=== PATIENT | female | born 1940 | race Caucasian/White ===

== ENCOUNTER → 2017-04-14 | Outpatient (CLI) | payer MEDICARE, BC ==
[~2017-04-14] MED LIST: ALDACTONE; ALDACTONE 25MG25 M1 PO; ASPIRIN 81M81 MG/TA2 PO; CEPHALEXIN500 M1 PO; CRANBERRY 100 M1 SGL PO; CRANBERRY CONC500 MG PO; GLUCOSAMINE & C1 CA1 PO; HCTZ; HCTZ12.5TAB PO; LEVAQUIN 750MG750 M1 PO; LOTENSIN10 MG PO; MOBIC15 MG PO; PERCOCET 325 MG1 TA2 PO; ULTRAM 50MG TAB50 MG PO
== END ==
LOC: COL.RAD 11:17
DX: M25.511 Pain in right shoulder (principal)
CPT/HCPCS: J3301; Q9967

== ENCOUNTER → 2017-05-14 | Outpatient (CLI) | payer MEDICARE, BC | LOC: COL.RAD 10:54 | DX: N28.1 Cyst of kidney, acquired (principal); N28.89 Other specified disorders of kidney and ureter ==

== ENCOUNTER 2017-06-09 19:29 | Emergency (ER) | payer MEDICARE, BC ==
[~2017-06-09] VITALS: Ht 160 cm; Wt 109.1 kg
[~2017-06-09 19:29] MED LIST changes: -CEPHALEXIN500 M1 PO; -LEVAQUIN 750MG750 M1 PO; -MOBIC15 MG PO
[2017-06-09 20:03] LABS: BASO # 0.1 (0.0-0.2); BASO % 0.4 % (0.0-2.0); EOS # 0.2 (0.0-0.7); GRAN # 17.7 (1.4-6.5); HEMATOCRIT 38.4 % (37.0-47.0); MEAN CELL VOLUME 95 fl (80.0-100.0); MEAN CORPUSCULAR HEMOGLOBIN 32 pg (27.0-31.0); MEAN CORPUSCULAR HGB CONC 34 g/dl (33.0-37.0); MEAN PLATELET VOLUME 9.3 fl (7.4-10.4); MONO # 1.2 (0.1-0.6); MONO % 5.9 % (1.7-9.3); PLATELET COUNT 236 K/mm3 (130-400); RED BLOOD COUNT 4.04 M/mm3 (4.10-5.30); REDCELL DISTRIBUTION WIDTH-CV 13.2 % (11.5-14.5)
[2017-06-09 20:06] LABS: WHITE BLOOD COUNT 20.4 K/mm3 (4.8-10.8)
[2017-06-09 20:13] LABS: ADJUSTED CALCIUM 9.2 mg/dL (8.4-10.2); ALBUMIN 4.1 gm/dL (3.5-5.0); BILIRUBIN,TOTAL 0.6 mg/dL (0.0-1.0); CALCIUM 9.3 mg/dL (8.4-10.2); CREATININE, serum 0.89 mg/dL (0.52-1.25); POTASSIUM 4.6 mmol/L (3.4-5.0); TOTAL PROTEIN 6.9 gm/dL (6.4-8.2)
[2017-06-09 20:50] LABS: PH 5 (5-8); SQUAMOUS EPITHELIAL 0-2 /hpf; URINE APPEARANCE Clear; URINE BACTERIA None Seen /hpf; URINE BILIRUBIN Negative (NEGATIVE); URINE BLOOD Negative (NEGATIVE); URINE COLOR Yellow; URINE GLUCOSE Negative (NEGATIVE); URINE KETONE Negative (NEGATIVE); URINE RBC 0-2 /hpf; URINE UROBILINOGEN Negative (NEGATIVE); URINE WBC 0-2 /hpf
[2017-06-09 20:56] VITALS: TEMP 99.1
[2017-06-09 21:06] LABS: INFLUENZA B NEGATIVE
[2017-06-09 22:26] VITALS: BP 130/60; PULSE 89
[2017-06-09] MEDS ORDERED: LEVAQUIN 750MG750 M1 PO (22:37)
== END 2017-06-09 22:56 | disposition home or self-care (01) ==
LOC: COL.ER 19:29
PROVIDERS: Emergency Medicine
DX: R50.9 Fever, unspecified (principal); J20.9 Acute bronchitis, unspecified; Z79.82 Long term (current) use of aspirin
CPT/HCPCS: J1885; J2405; J7030; Q9967

== ENCOUNTER 2017-06-13 14:21 | Emergency (ER) | payer MEDICARE, BC ==
[~2017-06-13] VITALS: Ht 160 cm; Wt 110.0 kg
[~2017-06-13 14:21] MED LIST changes: +LEVAQUIN 750MG750 M1 PO
[2017-06-13 14:24] VITALS: TEMP 97.6
[2017-06-13] MEDS ORDERED: CEPHALEXIN500 M1 PO (14:28)
[2017-06-13] MEDS ORDERED: MOBIC15 MG PO (14:29)
[2017-06-13 15:54] LABS: BASO # 0.1 (0.0-0.2); BASO % 0.5 % (0.0-2.0); EOS # 0.3 (0.0-0.7); EOS % 3.5 % (0-4.0); GRAN # 6.7 (1.4-6.5); GRAN % 67.8 % (42.2-75.2); HEMATOCRIT 38.1 % (37.0-47.0); HEMOGLOBIN 12.5 g/dl (12.5-16.0); LYMPH # 1.9 (1.2-3.4); LYMPH % 18.8 % (20.0-51.0); MEAN CELL VOLUME 97 fl (80.0-100.0); MEAN CORPUSCULAR HEMOGLOBIN 32 pg (27.0-31.0); MEAN CORPUSCULAR HGB CONC 33 g/dl (33.0-37.0); MEAN PLATELET VOLUME 9.3 fl (7.4-10.4); MONO # 0.9 (0.1-0.6); MONO % 8.6 % (1.7-9.3); PLATELET COUNT 217 K/mm3 (130-400); RED BLOOD COUNT 3.94 M/mm3 (4.10-5.30); REDCELL DISTRIBUTION WIDTH-CV 13.2 % (11.5-14.5); WHITE BLOOD COUNT 9.9 K/mm3 (4.8-10.8)
[2017-06-13 16:01] LABS: ADJUSTED CALCIUM 9.3 mg/dL (8.4-10.2); ALBUMIN 3.7 gm/dL (3.5-5.0); BILIRUBIN,TOTAL 0.6 mg/dL (0.0-1.0); CALCIUM 9.1 mg/dL (8.4-10.2); CREATININE, serum 0.88 mg/dL (0.52-1.25); POTASSIUM 3.8 mmol/L (3.4-5.0); TOTAL PROTEIN 6.8 gm/dL (6.4-8.2)
[2017-06-13 17:27] VITALS: BP 141/50; PULSE 66
== END 2017-06-13 17:39 | disposition home or self-care (01) ==
LOC: COL.ER 14:21
PROVIDERS: Emergency Medicine
DX: L03.90 Cellulitis, unspecified (principal); I10 Essential (primary) hypertension; Z79.82 Long term (current) use of aspirin
CPT/HCPCS: J3370; J7050

== ENCOUNTER → 2017-09-02 | Outpatient (CLI) | payer MEDICARE, BC ==
[~2017-09-02] MED LIST changes: +CEPHALEXIN500 M1 PO; +MOBIC15 MG PO
== END ==
LOC: COL.RAD 09:38
DX: N20.0 Calculus of kidney (principal); N28.1 Cyst of kidney, acquired; Z90.49 Acquired absence of other specified parts of digestive tract; Z98.890 Other specified postprocedural states
CPT/HCPCS: Q9967

== ENCOUNTER 2018-03-18 06:47 | Day surgery (SDC) | payer MEDICARE, BC ==
[2018-03-18] VITALS (10 sets, daily range): BP systolic 107–169; BP diastolic 52–72; PULSE 54–65; TEMP 97.8
[~2018-03-18] VITALS: Ht 160.1 cm; Wt 105.9 kg
[~2018-03-18 06:47] MED LIST changes: +LOTENSIN 1010 MG/TAB PO; -LOTENSIN10 MG PO
[2018-03-18] MEDS ORDERED: PRIL40 PO (07:19)
[2018-03-18] MEDS ORDERED: MULTI VITAMINS1 TAB PO (07:20)
[2018-03-18] MEDS ORDERED: [UNRECOGNIZED DRUG - OTHER] OP (07:20)
[2018-03-18] MEDS ORDERED: TYLENOL 8 HR PO (07:21)
[2018-03-18 07:31] LABS: HEMATOCRIT 39.8 % (37.0-47.0); HEMOGLOBIN 13.3 g/dl (12.5-16.0); MEAN CELL VOLUME 95 fl (80.0-100.0); MEAN CORPUSCULAR HEMOGLOBIN 32 pg (27.0-31.0); MEAN CORPUSCULAR HGB CONC 33 g/dl (33.0-37.0); MEAN PLATELET VOLUME 9.5 fl (7.4-10.4); PLATELET COUNT 219 K/mm3 (130-400); RED BLOOD COUNT 4.19 M/mm3 (4.10-5.30); REDCELL DISTRIBUTION WIDTH-CV 13.1 % (11.5-14.5)
[2018-03-18 07:40] LABS: INR 1.1 (0.8-3.0); PROTHROMBIN TIME 12.2 SECONDS (9.7-12.8)
[2018-03-18 07:44] LABS: CALCIUM 9.7 mg/dL (8.4-10.2); CREATININE, serum 1.04 mg/dL (0.52-1.25); POTASSIUM 4.1 mmol/L (3.4-5.0)
[2018-03-18] MEDS ORDERED: NORVASC 10MG10 MG PO (10:23)
== END 2018-03-18 13:15 | disposition home or self-care (01) ==
LOC: COL.CAR 06:47
PROVIDERS: Internal Medicine Cardiovascular Disease
DX: I10 Essential (primary) hypertension (principal); E66.01 Morbid (severe) obesity due to excess calories; I35.8 Other nonrheumatic aortic valve disorders; Z66 Do not resuscitate; E87.5 Hyperkalemia; K44.9 Diaphragmatic hernia without obstruction or gangrene; Z79.899 Other long term (current) drug therapy; Z79.82 Long term (current) use of aspirin; N30.20 Other chronic cystitis without hematuria; F41.9 Anxiety disorder, unspecified
CPT/HCPCS: C1769; J1644; J2250; J3010; Q9967

== ENCOUNTER → 2018-11-01 | Outpatient (CLI) | payer MEDICARE, BC ==
[~2018-11-01] MED LIST changes: +MULTI VITAMINS1 TAB PO; +NORVASC 10MG10 MG PO; +PRIL40 PO; +TYLENOL 8 HR PO; +[UNRECOGNIZED DRUG - OTHER] OP
== END ==
LOC: MC.RAD 10:20
DX: Z12.31 Encounter for screening mammogram for malignant neoplasm of breast (principal)

== ENCOUNTER 2019-02-02 10:12 | Emergency (ER) | payer MEDICARE, BC ==
[~2019-02-02] VITALS: Ht 160 cm; Wt 100.0 kg
[2019-02-02 10:19] VITALS: TEMP 97.5
[2019-02-02] MEDS ORDERED: LOTENSIN20 MG (10:41)
[2019-02-02 11:44] LABS: COLLECTION METHOD CLEAN CATCH
[2019-02-02] MEDS ORDERED: PERCOCET 325 MG1 TA2 PO (11:49)
[2019-02-02] MEDS ORDERED: MEDROL 4MG DOSPA4 MG PO (11:53)
[2019-02-02 11:56] LABS: MUCOUS Present /lpf; PH 7 (5-8); URINE APPEARANCE Clear; URINE BACTERIA Rare /hpf; URINE BILIRUBIN Negative (NEGATIVE); URINE BLOOD Negative (NEGATIVE); URINE COLOR Yellow; URINE GLUCOSE Negative (NEGATIVE); URINE KETONE Negative (NEGATIVE); URINE LEUKOCYTE ESTERASE 2+ (NEGATIVE); URINE NITRATE Negative (NEGATIVE); URINE PROTEIN(semi-quant) Negative (NEGATIVE); URINE RBC 0-2 /hpf; URINE UROBILINOGEN Negative (NEGATIVE)
[2019-02-02] MEDS ORDERED: MACROBID 1100 MG/CAP PO (12:07)
[2019-02-02 12:19] VITALS: BP 123/49; PULSE 55
== END 2019-02-02 12:19 | disposition home or self-care (01) ==
LOC: COL.ER 10:12
PROVIDERS: Family Medicine
DX: M54.17 Radiculopathy, lumbosacral region (principal); N30.00 Acute cystitis without hematuria; M54.41 Lumbago with sciatica, right side; I10 Essential (primary) hypertension; K21.9 Gastro-esophageal reflux disease without esophagitis; Z79.82 Long term (current) use of aspirin
CPT/HCPCS: J2270

== ENCOUNTER 2019-06-06 11:23 | Emergency (ER) | payer MEDICARE, BC ==
[~2019-06-06] VITALS: Ht 160 cm; Wt 99.5 kg
[~2019-06-06 11:23] MED LIST changes: +LOTENSIN20 MG; +MACROBID 1100 MG/CAP PO; +MEDROL 4MG DOSPA4 MG PO
[2019-06-06 11:39] VITALS: TEMP 98.3
[2019-06-06] MEDS ORDERED: NORCO 325 MG-51 TAB PO (14:30)
[2019-06-06 15:16] VITALS: BP 115/38; PULSE 59
== END 2019-06-06 15:17 | disposition home or self-care (01) ==
LOC: COL.ER 11:23
DX: S43.005A Unspecified dislocation of left shoulder joint, initial encounter (principal); I10 Essential (primary) hypertension; Z88.0 Allergy status to penicillin; Z88.2 Allergy status to sulfonamides; W01.0XXA Fall on same level from slipping, tripping and stumbling without subsequent striking against object, initial encounter; Y92.009 Unspecified place in unspecified non-institutional (private) residence as the place of occurrence of the external cause
CPT/HCPCS: J2270; J2704; J3010

== ENCOUNTER 2019-07-01 16:50 | Observation (INO) | payer MEDICARE, BC ==
[~2019-07-01] VITALS: Ht 160 cm; Wt 102.3 kg
[~2019-07-01 16:50] MED LIST changes: +NORCO 325 MG-51 TAB PO
[2019-07-01 19:08] LABS: COLLECTION METHOD CLEAN CATCH
[2019-07-01 19:14] LABS: MUCOUS Present /lpf; PH 5 (5-8); URINE APPEARANCE Clear; URINE BACTERIA None Seen /hpf; URINE BILIRUBIN Negative (NEGATIVE); URINE BLOOD Negative (NEGATIVE); URINE COLOR Yellow; URINE GLUCOSE Negative (NEGATIVE); URINE KETONE Negative (NEGATIVE); URINE LEUKOCYTE ESTERASE 1+ (NEGATIVE); URINE NITRATE Negative (NEGATIVE); URINE PROTEIN(semi-quant) Negative (NEGATIVE); URINE RBC 0-2 /hpf; URINE UROBILINOGEN Negative (NEGATIVE)
[2019-07-01] MEDS ORDERED: LOTENSIN40 MG PO (20:43)
[2019-07-01 21:08] LABS: BASO % 0.4 % (0.0-2.0); EOS # 0.2 (0.0-0.7); EOS % 1.8 % (0-4.0); GRAN # 6.5 (1.4-6.5); HEMATOCRIT 41.4 % (37.0-47.0); HEMOGLOBIN 13.4 g/dl (12.5-16.0); LYMPH # 2.2 (1.2-3.4); LYMPH % 22.5 % (20.0-51.0); MEAN CELL VOLUME 100 fl (80.0-100.0); MEAN CORPUSCULAR HEMOGLOBIN 32 pg (27.0-31.0); MEAN CORPUSCULAR HGB CONC 32 g/dl (33.0-37.0); MONO # 0.7 (0.1-0.6); MONO % 7.6 % (1.7-9.3); PLATELET COUNT 245 K/mm3 (130-400); RED BLOOD COUNT 4.14 M/mm3 (4.10-5.30); REDCELL DISTRIBUTION WIDTH-CV 12.5 % (11.5-14.5)
[2019-07-01 21:13] LABS: ALANINE AMINOTRANSFERASE 15 U/L (9-52); ALBUMIN 4.8 gm/dL (3.5-5.0); ALKALINE PHOSPHATASE 86 U/L (50-136); ANION GAP 12 mmol/L (7-16); AST,SGOT 26 U/L (15-37); BILIRUBIN,TOTAL 0.3 mg/dL (0.0-1.0); BLOOD UREA NITROGEN 44 mg/dL (7-17); CALCIUM 9.9 mg/dL (8.4-10.2); CARBON DIOXIDE 26 mmol/L (22-30); CHLORIDE 101 mmol/L (98-107); CREATININE, serum 1.26 (0.52-1.25); GLUCOSE 111 mg/dL (74-106); POTASSIUM 5.4 mmol/L (3.4-5.0); SODIUM 139 mmol/L (137-145); TOTAL PROTEIN 7.9 gm/dL (6.4-8.2)
[2019-07-01 21:17] LABS: C-REACTIVE PROTEIN < 0.5 mg/dL (0.0-0.9)
[2019-07-01] MEDS ORDERED: ADVIL200 MG PO (21:28)
[2019-07-01] MEDS ORDERED: FLAREX 5 ML5 M1 OP (21:29)
[2019-07-01 21:58] LABS: ERYTHROCYTE SEDIMENTATION RATE 6 mm/hr (0-30)
[2019-07-01 22:41] VITALS: BP 139/57; PULSE 60; TEMP 97.6
[2019-07-01 23:41] VITALS: BP 120/40; PULSE 65; TEMP 97.4
[2019-07-02] VITALS (7 sets, daily range): BP systolic 120–181; BP diastolic 35–74; PULSE 57–75; TEMP 97.4–98.8
[2019-07-02 00:29] LABS: CALCIUM 8.7 mg/dL (8.4-10.2); CREATININE, serum 1.09 (0.52-1.25); POTASSIUM 4.6 mmol/L (3.4-5.0)
--- NOTE | 2019-07-02 06:01 | NUR ---
Pt has had a fairly comfortable night after repositioned to right side and supported with pillows. Medicated x1 with oral pain med. IV fluids continue to infuse at 150mL/hr in R FA. Call light within reach. Bed alarm on.
[2019-07-02 07:00] LABS: BASO % 0.5 % (0.0-2.0); EOS # 0.2 (0.0-0.7); EOS % 2.4 % (0-4.0); GRAN # 5.5 (1.4-6.5); GRAN % 64.3 % (42.2-75.2); LYMPH # 1.9 (1.2-3.4); LYMPH % 22.4 % (20.0-51.0); MEAN CELL VOLUME 99 fl (80.0-100.0); MEAN CORPUSCULAR HGB CONC 33 g/dl (33.0-37.0); MEAN PLATELET VOLUME 9.4 fl (7.4-10.4); MONO # 0.9 (0.1-0.6); MONO % 9.9 % (1.7-9.3); PLATELET COUNT 175 K/mm3 (130-400); REDCELL DISTRIBUTION WIDTH-CV 12.3 % (11.5-14.5)
[2019-07-02 07:10] LABS: HEMATOCRIT 34.7 % (37.0-47.0); HEMOGLOBIN 11.4 g/dl (12.5-16.0); MEAN CORPUSCULAR HEMOGLOBIN 33 pg (27.0-31.0)
[2019-07-02 07:12] LABS: CALCIUM 8.6 mg/dL (8.4-10.2); CREATININE, serum 0.93 (0.52-1.25); POTASSIUM 4.9 mmol/L (3.4-5.0)
--- NOTE | 2019-07-02 07:56 | NUR ---
Pt alert and oriented. Pt assisted back to bed and positioned on her right side per request with pillows. Pt IV patent no redness or infiltration noted. Pt back pain 3/10 at rest and increases with movement. Pt denies SOB or dizziness. Neuro WNL. Pt has call light in reach and wants to rest for awhile. Pt already ate breakfast per pt.
--- NOTE | 2019-07-02 14:23 | NUR ---
Plan is to screen into a SNF or IPR. If unavailable home health care. DANIEL met with patient, patients DTR Abbey and Son in-law Hardik in room. Patient gave permission to discuss information infront of family. Patient reports that [place] [facility]. Patient reports that she has increasing pain in which she can barely move and often can not get around the home to take care of herself. Patient reports that her PCP is Dr. Greenwood. Patient reports that use of a walker and cane, no other DME. Patient reports that use of [facility] for RX. Patient denies having care concerns. Patient reports that the DPOA is Vance Astorga . Daughter is present and wants more information on SNF. Follow-up miky is scheduled for next thursday at 7:45 am. Patient and family indicate not feeling safe to go home. Action: DANIEL spoke with about patient concerns. PT is [facility] and will does not qt for admin. Educated patient and family about screen process. Indicated screen for IPR and Home health care. DANIEL gave family and patient medicare.gove resource sheet for HHS and SNF. Educated on out of pocket cost without qualifying. Educated for referral. Awaiting additonal information from . Continue to follow care.
--- NOTE | 2019-07-02 17:35 | NUR ---
Pt resting in chair. Pt ambulates with SBA with walker to bathroom. Pt reports pain with certain movements but does not last long. Pt IV patent no redness and no infiltration noted. Pt denies need for pain medication at this time. Pt has supper ordered.
--- NOTE | 2019-07-02 20:20 | NUR ---
Patient assessed at this time. Alert and oriented x 4, and able to make needs known. Reported pain to have decreased to a 4 after receiving PRN medication. Peripheral IV to right forearm. NS running at 75 ml/hr. Denies having SOB and dyspnea. LS CTA. Respirations even and unlabored. HRR. Capillary refill less than 3 seconds. Non-tenting skin turgor. BSAx4. Abdomen soft and non-tender. No edema. Has been getting up with SBA with walker. Gait is steady. Resting in bed with call light within reach. Visiting with family members at this time. Voices no questions, needs, or concerns at this time.
[2019-07-03 03:39] VITALS: BP 138/40; PULSE 55; TEMP 98.4
--- NOTE | 2019-07-03 05:41 | NUR ---
Patient has not had any further complaints of pain or discomfort. Has been calling for assistance and getting around with walker with stand by assist. Voices no questions, needs, or concerns. Resting in bed with call light within reach.
--- NOTE | 2019-07-03 07:31 | NUR ---
Pt alert and oriented this am. Pt sitting at side of bed at shift change and requested to get up to wash her face and brush her teeth. Pt assisted with walker and as pt ambulated her back pain increased. Pt assisted back to bed after brushing her teeth and washing her face. Pt reports pain now 8/10. Pt given PRN [place] as ordered. Pt has call light in reach. Pt IV patent no redness or infiltration noted.
[2019-07-03 08:10] VITALS: BP 149/58; PULSE 59; TEMP 98.4
--- NOTE | 2019-07-03 11:15 | NUR ---
Pt sitting up in chair after working with PT. Pt states pain decreased after working with PT and oral medications and ice treatment. Pt has call light in reach and ordering lunch now.
[2019-07-03 11:35] VITALS: BP 160/69; PULSE 59; TEMP 98.1
[2019-07-03] MEDS ORDERED: LOVENOX 4040 MG/0.4 SQ (14:05)
[2019-07-03] MEDS ORDERED: PREDNISONE20 MG PO (14:06)
[2019-07-03] MEDS ORDERED: COLACE 100100 MG/CAP PO (14:06)
[2019-07-03] MEDS ORDERED: TYLENOL 500MG500 MG PO (14:06)
[2019-07-03] MEDS ORDERED: MOTRIN 400400 MG/TAB PO (14:10)
[2019-07-03 16:12] VITALS: BP 160/69; PULSE 59; TEMP 98.1
[2019-07-03 16:23] VITALS: BP 153/60; PULSE 73; TEMP 98
--- NOTE | 2019-07-03 16:53 | NUR ---
Pt report given to [facility] nurse Joann for pt transfer.
--- NOTE | 2019-07-03 18:05 | NUR ---
Pt IV discontinued from RF and tip intact and no redness or infiltration noted. Pt given education on transfer to [facility] with family present and discharge instructions and plan. Pt has all belongings and escorted via wheelchair to IPR by aide without incident.
[2019-07-04] MEDS ORDERED: MICROZIDE12.5 MG PO (04:53)
[2019-07-04] MEDS ORDERED: TURMERIC500 MG PO (09:04)
== END 2019-07-03 17:25 ==
LOC: COL.ER 16:50 → MEDICAL 19:56
PROVIDERS: Emergency Medicine; Nurse Practitioner Family; ADMIT Internal Medicine
DX: M54.40 Lumbago with sciatica, unspecified side (principal); N17.9 Acute kidney failure, unspecified; E87.5 Hyperkalemia; I10 Essential (primary) hypertension; R82.81 Pyuria; Z86.718 Personal history of other venous thrombosis and embolism; Z79.01 Long term (current) use of anticoagulants; E66.9 Obesity, unspecified; Z68.39 Body mass index [BMI] 39.0-39.9, adult; M19.90 Unspecified osteoarthritis, unspecified site; M47.896 Other spondylosis, lumbar region; Z94.7 Corneal transplant status; Z96.643 Presence of artificial hip joint, bilateral; Z90.49 Acquired absence of other specified parts of digestive tract; Z79.899 Other long term (current) drug therapy; Z79.82 Long term (current) use of aspirin; Z82.49 Family history of ischemic heart disease and other diseases of the circulatory system; Z82.69 Family history of other diseases of the musculoskeletal system and connective tissue; Z83.3 Family history of diabetes mellitus; Z88.0 Allergy status to penicillin; Z88.2 Allergy status to sulfonamides; Z88.8 Allergy status to other drugs, medicaments and biological substances
CPT/HCPCS: G0378; J1650; J1885; J3010; J7030; J7512

== ENCOUNTER 2019-07-03 13:57 | Inpatient (IN) | payer MEDICARE, BC, OTHER ==
[~2019-07-03] VITALS: Ht 160 cm; Wt 100.4 kg
[~2019-07-03 13:57] MED LIST changes: +ADVIL200 MG PO; +FLAREX 5 ML5 M1 OP; +LOTENSIN40 MG PO
[2019-07-03] MEDS ORDERED: LOVENOX 4040 MG/0.4 SQ (14:05)
[2019-07-03] MEDS ORDERED: PREDNISONE20 MG PO (14:06)
[2019-07-03] MEDS ORDERED: COLACE 100100 MG/CAP PO (14:06)
[2019-07-03] MEDS ORDERED: TYLENOL 500MG500 MG PO (14:06)
[2019-07-03] MEDS ORDERED: MOTRIN 400400 MG/TAB PO (14:10)
--- NOTE | 2019-07-03 15:06 | NUR ---
Referred and accepted to [facility] per inpatient rn cardiac rehab.
[2019-07-03 17:41] VITALS: BP 143/73; PULSE 75; TEMP 97.9
--- NOTE | 2019-07-03 19:54 | NUR ---
Patient arrived to [facility] at 1700 this evening. Family helped her get settled in her room. Initial was completed. Patient was given instructions on rehab activities and voiced understanding. Family contact numbers were left for daughter ([phone]) and son-in-law ([phone]) per patient request. Patient signed admission papers and is currently resting in bed at this time. Reported off to night nurse.
[2019-07-04 04:49] VITALS: BP 172/69; PULSE 75; TEMP 98.1
[2019-07-04] MEDS ORDERED: MICROZIDE12.5 MG PO (04:53)
[2019-07-04] MEDS ORDERED: TURMERIC500 MG PO (09:04)
--- NOTE | 2019-07-04 12:17 | NUR ---
SW met with the patient to complete assessment on Rehab. Pt is alert & oriented. She is able to verbally communicate her needs & wants to others. Pt lives w/ alone but has good family support. She lives in a 2 story home w/ 2 steps to enter w/ bilateral handrails. Pt reports not using the 2nd floor or the cellar. The bathroom has a step-in shower w/ curtain, built in shower seat, grab bars, & hand held shower head. The toilet is ADA height. Pt reports being able to walk w/ s/cane, which she used mostly outside & had a tendancy to furniture surf inside. Pt was doing her own ADL's, cooking, light housekeeping, laundry, some shopping, drove some, medication management, & finance management. Pt reports having r/walker & s/cane. Family does help w/ the shopping, heavy housekeeping, & most driving. Pt does not receive any services. Pt's PCP is Dr. Galicia and her receives her medications at [facility], & reports no difficulties obtaining her meds. The pt does have advanced directives w/ her son, Rizwan, designated as DPOA. Copy was requested for our records. Pt's plan is to return to her home w/ support from her family. Pt is interested in a 4/wheel walker she used this morning in therapy. Will continue to follow for d/c planning.
--- NOTE | 2019-07-04 14:12 | NUR ---
Explained to the pt the team is wanting to do a pt/family conference on 07/06/19 @ 2:00 pm if that would work for her family. Pt actually contacted 2 of her children, who stated that would work for them.
[2019-07-04 18:16] VITALS: BP 145/60; PULSE 78; TEMP 97.6
--- NOTE | 2019-07-04 20:02 | NUR ---
Report from ZOILA Peters. Pt A&O, pleasantly cooperative, amb with rollator, gait belt, CGA. Pt in own sandals with built-up wedge on rt side. Reports chronic numbness to left hand w/ hx of carpal tunnel. Ice pack for left shoulder/right low back pain. BIMS completed, passed. Pt takes pills whole with thin liquids. Questions answered about GILDARDO and BP meds. Pt's family brought pt's own meds and DPOA paperwork to chart. Pt uses pads for stress incont. Pain controlled with tylenol. Report to ZOILA Diaz.
--- NOTE | 2019-07-04 20:30 | NUR ---
HS meds all reviewed and given. Declines bowel meds because of recent stool. Rests in bed and denies needs or pain.
--- NOTE | 2019-07-05 02:15 | NUR ---
Patient awake. Reports inability to sleep well tonight "worried about my kidney function". States is voiding a good amount. Hat placed to monitor urine output. Denies burning or flank pain with urination. Will monitor. Standby assist to the bathroom with walker and back to bed. Sits self up and rests self back in bed.
[2019-07-05 04:07] VITALS: BP 134/41; PULSE 52; TEMP 97.8
--- NOTE | 2019-07-05 04:08 | NUR ---
PATIENT BACK TO BED. STATES "NOT REALLY" TO GETTING SOME SLEEP UP IN RECLINER.
--- NOTE | 2019-07-05 05:45 | NUR ---
Patient returned from the bathroom and rests back in bed. Nurse assists with covers. Reports her arm gets sore reaching for them. Offered pain med and patient declined at this time.
--- NOTE | 2019-07-05 08:02 | NUR ---
Patient resting in bed at this time, call light in reach fully dressed and waiting for her first therapy session. Shoes are on and working on a puzzle. Patient did not sleep well last night. Discussed possible melatonin for helping sleep at bed time. Will discuss with Dr. brothers.
--- NOTE | 2019-07-05 15:05 | NUR ---
Visited w/ pt, who is having a off day. She stated she did not sleep well last night due to getting up frequently to urinate. She seemed a little down about her decline. We talked about having good days & bad days, which she agreed with. Pt seemed to be in a better mood after our conversation.
[2019-07-05 15:43] VITALS: BP 88/69; PULSE 85; TEMP 97.9
[2019-07-05 16:02] VITALS: BP 136/72
--- NOTE | 2019-07-05 17:00 | NUR ---
Patient is independent in her room with a walker. She is currently sitting on the side of her bed eating her supper. Denies questions at this time.
--- NOTE | 2019-07-05 20:45 | NUR ---
med reviewed and given. Patient denies pain at this time. Reports she's getting around fine independently. Gatorade given.
--- NOTE | 2019-07-05 22:45 | NUR ---
Rests in bed mostly on abdomin. Respirations with ease.
[2019-07-06 05:23] VITALS: BP 151/72; PULSE 56; TEMP 98.3
--- NOTE | 2019-07-06 05:43 | NUR ---
Patient states "slept really good" and not up as often to the bathroom. Reports left shoulder soreness but declines pain med. Ice pack applied.
[2019-07-06 06:26] LABS: BASO % 0.3 % (0.0-2.0); EOS # 0.1 (0.0-0.7); GRAN # 7.2 (1.4-6.5); HEMATOCRIT 37.5 % (37.0-47.0); HEMOGLOBIN 12.1 g/dl (12.5-16.0); LYMPH # 3.2 (1.2-3.4); LYMPH % 27.6 % (20.0-51.0); MEAN CELL VOLUME 99 fl (80.0-100.0); MEAN CORPUSCULAR HEMOGLOBIN 32 pg (27.0-31.0); MEAN CORPUSCULAR HGB CONC 32 g/dl (33.0-37.0); MEAN PLATELET VOLUME 9.4 fl (7.4-10.4); MONO % 8.3 % (1.7-9.3); PLATELET COUNT 217 K/mm3 (130-400); REDCELL DISTRIBUTION WIDTH-CV 12.1 % (11.5-14.5)
[2019-07-06 06:39] LABS: ALBUMIN 4.1 gm/dL (3.5-5.0); BILIRUBIN,TOTAL 0.5 mg/dL (0.0-1.0); CALCIUM 9.4 mg/dL (8.4-10.2); CREATININE, serum 0.81 (0.52-1.25); MAGNESIUM 1.8 mg/dL (1.6-2.3); TOTAL PROTEIN 6.7 gm/dL (6.4-8.2)
--- NOTE | 2019-07-06 07:54 | NUR ---
Patient resting in bed at this time, independent in room with walker. Ate 100% of her meal.
--- NOTE | 2019-07-06 08:35 | NUR ---
Family brought in copy of DPOA paperwork & it was placed in pt's chart.
--- NOTE | 2019-07-06 14:15 | NUR ---
A Family Conference was conducted with pt, pt's daughter, son, & son-in-law. Also present was PT, OT, & Real Estate Valuer/SW. Real Estate Valuer/SW started by explaining the purpose of the meeting. The therapists explained how pt has been functioning & making good progress. Informed them of d/c for 07/08/19, w/ recommendations for outpatient PT. They seemed fine with this. They asked questions which team answered. Pt & family are pleased with progress & care pt is receiving.
--- NOTE | 2019-07-06 14:20 | NUR ---
Went back to pt's room & talked w/ pt & family about the 4/wheeled walker. Explained that Medicare will pay for a 4/w/walker up to a r/walker rate & then the remaining cost would be pt's responiblity. They were fine w/ this. Provided them w/ a list of place to obtain & they decided on [facility]. They also want to stay w/ [facility] for outpatient therapy.
[2019-07-06 17:59] VITALS: BP 120/76; PULSE 83; TEMP 97.4
--- NOTE | 2019-07-06 21:05 | NUR ---
Patient attended all therapies today. Reporting pain to her back and was given prn Tylenol, but this was not very effective so was given Ibuprofen. Patient tolerated well, but was still having 8/10 pain when working with PT and was given prn [place] in the afternoon and this seem to be very effective for the patient. She was hoping to start out with the [place] tomorrow morning to prepare her for the morning therapies. This was communicated to the night nurse. Patient was independent in her room today. Patient reported sleeping very well last night. Ice pack was used to help with back pain this evening.
--- NOTE | 2019-07-06 21:07 | NUR ---
Reported off to night nurse.
--- NOTE | 2019-07-06 22:30 | NUR ---
PT RESTING BUT WAKES EASILY. MOD IN ROOM/BARDALES W WALKER. PT RELATES TOLERATING IT WELL. DENIES NEED FOR PAIN MEDICATION. HAS LT SHOUDER DISCOMFORT AT TIMES AND USES ICE PACKS PRN FOR THIS. PT WEARS PADS [id number] STRESS INCONT. NO OTHER NEEDS AT THIS TIME. CALL LIGHT IN REACH.
--- NOTE | 2019-07-07 05:27 | NUR ---
PATIENT HAS SLEPT WELL THIS NIGHT.
[2019-07-07 05:44] VITALS: BP 141/52; PULSE 54; TEMP 97.7
--- NOTE | 2019-07-07 09:45 | NUR ---
Was informed by nursing that pt very emotional this morning about going home. Went & visited w/ pt. She started crying & stated she is concerned about what she is going to do after she gets home & she can do it. She wants to know what her options are. We talked about assisted living facility or half-way facility. Pt kept talking about how she does not want to be a burden to her family. Let pt vent & crying. Asked her if SW could talk w/ her daughter, Abbey, which she said was fine.
--- NOTE | 2019-07-07 10:18 | NUR ---
Contacted [facility] & spoke w/ Christina. Equipment order request made for rollator. Faxed referral information.
--- NOTE | 2019-07-07 11:08 | NUR ---
Report from ZOILA Peters. Pt radhames mod I in room with walker. C/o pain and anxious about going home alone, tearful. Enc pt to express concerns, she states she does not have anyone to stay with for any time after she returns home, informed Dir Bryanna/DANIEL. Pt states she had a BM yesterday, held colace this am. Takes pills whole with thin liquds. Tylenol for back pain given.
--- NOTE | 2019-07-07 12:59 | NUR ---
Pt tearful about discharge planning and the future, does not want to be a burden to her family, states that her daughter will stay with her through Thursday, offered enc and support. Luz mod I in rm
--- NOTE | 2019-07-07 13:38 | NUR ---
Followed up w/ pt from conversation this morning. She told SW that she is doing much better & that she did speak w/ her daughter. She plans on going home & just taking one day at a time. Reviewed Medicare Rights form w/ pt. She stated she understood & signed form.
[2019-07-07 15:40] VITALS: BP 129/65; PULSE 79; TEMP 98
--- NOTE | 2019-07-07 17:42 | NUR ---
Pt sitting bedside, walker in reach, new one delivered to room. Denies needs at this time.
--- NOTE | 2019-07-07 19:38 | NUR ---
Report to Lorraine RN, pt mod I in with door open.
--- NOTE | 2019-07-07 21:00 | NUR ---
PT RESTING IN BED ON RT SIDE. PT DENIES PAIN LONG SHE STAYS STILL. REFUSED PAIN MEDS OR ICE PACKS. LT SHOULDER STILL ACHEY. PT MOD I IN ROOM AND BARDALES WITH WALKER. PT RELATES SHE FEELS SHE IS STEADY. AGREED TO CALL STAFF IF NEEDING ANY STAFF. CALL LIGHT IN REACH.
[2019-07-08 03:57] VITALS: BP 104/68; PULSE 56; TEMP 98.1
[2019-07-08] MEDS ORDERED: PREDNISONE10 MG PO (07:26)
[2019-07-08] MEDS ORDERED: NORCO 325 MG-51 TAB PO (07:27)
--- NOTE | 2019-07-08 09:51 | NUR ---
Contacted [facility]. Arranged for PT appointment on 07/11/19 @ 10:40 am. Faxed referral information to [phone].
--- NOTE | 2019-07-08 10:15 | NUR ---
Visited w/ pt about Neurosurgeon follow up. Told her that Dr Gutiérrez' recommendation was for 1 of 3 physicans at the [facility] in [place] or Dr. Kapadia at [facility]. She also inquired about [place] & told her it was not mentioned by Dr. Gutiérrez but it can always be an option. She stated she wanted to talk to her children before proceeding. Told her that was fine because once they decide then Dr. Gutiérrez can make the referral.
--- NOTE | 2019-07-08 14:03 | NUR ---
Printed health summary, discharge summary and home med list and reviewed with pt and daughter. Copy of home med list to chart with written changes. Prescription for norco provided. Stressed importance of follow up appointments and labs. Noted that prednisone prescription was sent to pt's pharmacy. Belongings gathered by staff and pt/family. Pt transported via wheelchair by JONATHAN Bateman for ride home. Pt and daughter denied any questions. Provided tylenol prior to discharge. Returned pt's meds: flarex eye drops, cranberry caps, and benazepril tabs. Pt taking dentures, glasses, new walker, silver flip phone and clothes.
--- NOTE | 2019-07-08 14:03 | NUR ---
Reviewed discharge instructions
== END 2019-07-08 14:03 | disposition home or self-care (01) | DRG 948 ==
PROVIDERS: ADMIT Internal Medicine
DX: R53.81 Other malaise (principal); N17.9 Acute kidney failure, unspecified; M48.061 Spinal stenosis, lumbar region without neurogenic claudication; I10 Essential (primary) hypertension; E87.5 Hyperkalemia; E66.9 Obesity, unspecified; M19.90 Unspecified osteoarthritis, unspecified site; Z79.82 Long term (current) use of aspirin; Z79.891 Long term (current) use of opiate analgesic; Z79.52 Long term (current) use of systemic steroids; Z90.710 Acquired absence of both cervix and uterus; Z86.718 Personal history of other venous thrombosis and embolism; Z88.0 Allergy status to penicillin; Z88.2 Allergy status to sulfonamides
CPT/HCPCS: 99222-AI; 99232-AI; 99239; J1650; J7512

== ENCOUNTER 2019-07-29 11:32 | Outpatient (CLI) | payer MEDICARE, BC ==
[~2019-07-29] VITALS: Ht 160 cm; Wt 101.1 kg
[~2019-07-29 11:32] MED LIST changes: +COLACE 100100 MG/CAP PO; +LOVENOX 4040 MG/0.4 SQ; +MICROZIDE12.5 MG PO; +MOTRIN 400400 MG/TAB PO; +PREDNISONE10 MG PO; +PREDNISONE20 MG PO; +TURMERIC500 MG PO; +TYLENOL 500MG500 MG PO
[2019-07-29 11:50] VITALS: BP 171/81; PULSE 72
[2019-07-29 13:15] VITALS: BP 145/70; PULSE 69
[2019-07-29 13:30] VITALS: BP 133/67; PULSE 71
[2019-07-29 14:00] VITALS: BP 98/48; PULSE 64
[2019-07-29 14:30] VITALS: BP 119/62; PULSE 64
[2019-07-29 15:25] VITALS: BP 157/72; PULSE 71
== END 2019-07-29 16:17 | disposition home or self-care (01) ==
LOC: COL.RAD 11:32
DX: M48.061 Spinal stenosis, lumbar region without neurogenic claudication (principal); M54.10 Radiculopathy, site unspecified
CPT/HCPCS: Q9965

== ENCOUNTER 2020-06-15 16:57 | Emergency (ER) | payer MEDICARE, BC ==
[~2020-06-15] VITALS: Ht 160 cm; Wt 104.1 kg
[2020-06-15 17:08] VITALS: BP 120/76; TEMP 98.1
[2020-06-15] MEDS ORDERED: CLEOCIN HCL300 MG PO (18:16)
[2020-06-15 18:45] VITALS: PULSE 80
== END 2020-06-15 19:45 | disposition home or self-care (01) ==
LOC: COL.ER 16:57
DX: K13.70 Unspecified lesions of oral mucosa (principal); Z88.0 Allergy status to penicillin; Z79.82 Long term (current) use of aspirin

== ENCOUNTER 2020-09-19 09:28 | Emergency (ER) | payer MEDICARE, BC ==
[~2020-09-19] VITALS: Ht 160 cm; Wt 104.5 kg
[~2020-09-19 09:28] MED LIST changes: +CLEOCIN HCL300 MG PO
[2020-09-19 09:37] VITALS: TEMP 97.8
[2020-09-19 10:27] LABS: BASO % 0.4 % (0.0-2.0); EOS # 0.2 (0.0-0.7); EOS % 1.8 % (0-4.0); GRAN # 6.2 (1.4-6.5); GRAN % 72.2 % (42.2-75.2); HEMATOCRIT 39.7 % (37.0-47.0); LYMPH # 1.5 (1.2-3.4); LYMPH % 17.2 % (20.0-51.0); MEAN CELL VOLUME 96 fl (80.0-100.0); MEAN CORPUSCULAR HEMOGLOBIN 31 pg (27.0-31.0); MEAN CORPUSCULAR HGB CONC 33 g/dl (33.0-37.0); MONO # 0.7 (0.1-0.6); PLATELET COUNT 237 K/mm3 (130-400); RED BLOOD COUNT 4.15 M/mm3 (4.10-5.30); REDCELL DISTRIBUTION WIDTH-CV 12.8 % (11.5-14.5)
[2020-09-19 10:29] LABS: INR 1.1 (0.8-3.0)
[2020-09-19 10:33] LABS: ALANINE AMINOTRANSFERASE 21 U/L (4-34); ALBUMIN 4.5 gm/dL (3.5-5.0); ALKALINE PHOSPHATASE 74 U/L (50-136); ANION GAP 9 mmol/L (7-16); AST,SGOT 36 U/L (15-37); BILIRUBIN,TOTAL 0.6 mg/dL (0.0-1.0); BLOOD UREA NITROGEN 28 mg/dL (7-17); CALCIUM 9.7 mg/dL (8.4-10.2); CARBON DIOXIDE 28 mmol/L (22-30); CHLORIDE 100 mmol/L (98-107); CREATININE, serum 0.86 (0.52-1.25); GLUCOSE 120 mg/dL (74-106); LIPASE 96 U/L (23-300); POTASSIUM 4.4 mmol/L (3.4-5.0); SODIUM 137 mmol/L (137-145); TOTAL PROTEIN 7.5 gm/dL (6.4-8.2)
[2020-09-19 10:46] LABS: TROPONIN-I < 0.012 ng/mL (0.000-0.035)
[2020-09-19 13:16] VITALS: BP 170/84; PULSE 66
== END 2020-09-19 11:50 | disposition home or self-care (01) ==
LOC: COL.ER 09:28
PROVIDERS: Nurse Practitioner Primary Care
DX: I10 Essential (primary) hypertension (principal); Z90.49 Acquired absence of other specified parts of digestive tract; Z90.710 Acquired absence of both cervix and uterus; Z90.89 Acquired absence of other organs; Z88.0 Allergy status to penicillin; Z88.2 Allergy status to sulfonamides; Z79.82 Long term (current) use of aspirin
CPT/HCPCS: J7030

== ENCOUNTER 2021-03-29 12:37 | Inpatient (IN) | payer MEDICARE, BC, MEDICAID ==
[~2021-03-29] VITALS: Ht 160.1 cm; Wt 101.2 kg
[2021-05-14] VITALS (11 sets, daily range): BP systolic 98–177; BP diastolic 37–70; PULSE 51–76; TEMP 97.5–98.4
[2021-05-14] MEDS ORDERED: TYLENOL 500MG500 MG PO (08:03)
[2021-05-14] MEDS ORDERED: NORVASC 5MG5 MG/TAB PO (08:04)
[2021-05-14] MEDS ORDERED: LOTRISONE 0.05%1 CRE TOP (08:06)
[2021-05-14] MEDS ORDERED: EPA FISH OIL1 SGL PO ×2 (08:07→08:14)
[2021-05-14] MEDS ORDERED: [UNRECOGNIZED DRUG - OTHER] PO (08:13)
[2021-05-14] MEDS ORDERED: LEXAPRO 10MG10 MG PO (08:13)
--- NOTE | 2021-05-14 13:21 | NUR ---
PT TO ROOM 322 PER BED WITH REPORT FROM JESSICA CUMMINGS PACU@1300. PT IS A/O X4, LUNGS CTA, BOWEL SOUNDS PRESENT. DRESSING TO RIGHT KNEE CDI WITH BULKY ARY WRAP OVER INCISION. IV TO PUMP PER ORDERS. SCDS PLACED BILATERALLY.
--- NOTE | 2021-05-14 16:09 | NUR ---
general house worker met with patient to discuss discharge plan. Patient reports that she lives at home along in [place]. Patient's daughter Abbey ([phone]) present in room. Patient reports that she is fully independent on activies of daily living and uses a walker to help with mobility. Patient's PCP is Dr. Torrie Landis and uses [facility]. No difficulty affording medications. DPOA-HC is in PCI. Patient states that she wants to go to a SNF post discharge. general house worker talked with the patient about different options but educated the patient that PT/OT needs to evaluate her. Patient states her preferred placement would be [facility], however should she qualify for IPR should she would like to do that. general house worker stressed that PT/OT would need to evaluate her to see if she would be a good candidate for IPR. *Discharge Plan: SNF placement. Possible IPR pending PT/OT rec's. If not a candidate then [facility]-SNF perferred choice*
--- NOTE | 2021-05-14 17:22 | NUR ---
PT UP TO BSC VOIDED AND RETURNED TO BED.
--- NOTE | 2021-05-14 19:30 | NUR ---
PATIENT IS ALERT AND ORIENTED X4. PATIENT HAS DRESSING AND ARY WRAP TO RIGHT KNEE THAT IS CLEAN, DRY, AND INTACT. PATIENT HAS ICE TO KNEE AT THIS TIME AND SCDS AND DANYELLE HOSE ON BILATERAL LOWER EXTREMITIES. PATIENT HAS IV INT TO LEFT FOREARM. PATIENT LOOKING TO GO TO [facility] OR [facility]. PATIENT DENIES FURTHER NEEDS AT THIS TIME. CALL LIGHT WITHIN REACH. HEAD TO TOE ASSESSMENT COMPLETE.
[2021-05-15 03:48] VITALS: BP 133/50; PULSE 57; TEMP 98.1
[2021-05-15 06:53] LABS: HEMOGLOBIN 10.6 g/dl (12.5-16.0)
[2021-05-15 06:56] LABS: HEMATOCRIT 32.8 % (37.0-47.0)
[2021-05-15 07:27] VITALS: BP 126/47; PULSE 61; TEMP 97.9
--- NOTE | 2021-05-15 08:00 | NUR ---
Patient in bed resting. Alert and oriented x 3. Assessment complete. Patient states mild pain 3/10 this AM. Ice pack to right knee. Right knee with acewrap notes. Pedal pulses intact. David claudioe and SCD to LLE. INT to left forarm without complications. Denies further needs at this time.
--- NOTE | 2021-05-15 11:30 | NUR ---
Patient called out states pain 8/10 to right knee, medications given per orders.
[2021-05-15 12:17] VITALS: BP 111/50; PULSE 66; TEMP 97.5
--- NOTE | 2021-05-15 12:28 | NUR ---
First visit from the tailor men's ready to wear. No needs right now.
--- NOTE | 2021-05-15 13:49 | NUR ---
Bryanna notifed worker that patient has been accepted for IPR. Worker notified patient that she has been accepted for IPR. Daughter notified.
[2021-05-15 16:15] VITALS: BP 120/95; PULSE 76; TEMP 98.2
--- NOTE | 2021-05-15 18:24 | NUR ---
Patient doing well throughout the day. Dressing changed to aquacell this AM. Incision with edges well approximated, edema noted around incision. Patient has been up to recliner throuhout the day and has been ambulating to bathroom with walker and x 1 assist. Denies needs at this time. Will report off to manager night.
[2021-05-15 19:49] VITALS: BP 117/86; PULSE 77; TEMP 97.6
--- NOTE | 2021-05-15 20:00 | NUR ---
PATIENT ALERT AND ORIENTED X4. LAYING IN BED, HELPED TO BATHROOM AND GETTING PJS ON. PATIENT HAS STEADY GAIT AND IS WALKING WELL WITH WALKER AROUND ROOM. RIGHT KNEE HAS AQUACELL DRESSING CLEAN DRY AND INTACT. PATIENT HAS SCD'S ON BILATERALLY AND RIGHT LEG ELEVATED WITH ICE PACK TO KNEE. PATIENT HAS IV TO LEFT FOREARM AND IS SET TO MOVE TO IPR TOMORROW. PATIENT DENIES PAIN OR FURTHER NEEDS AT THIS TIME. CALL LIGHT WITHIN REACH. HEAD TO TOE ASSESSMENT COMPLETE.
[2021-05-15 22:57] VITALS: BP 157/59; PULSE 66; TEMP 97.9
[2021-05-16 04:18] VITALS: BP 146/89; PULSE 80; TEMP 98.2
[2021-05-16 04:23] VITALS: BP 187/62; PULSE 73; TEMP 97.9
[2021-05-16 05:57] VITALS: BP 153/62
--- NOTE | 2021-05-16 06:31 | NUR ---
PATIENT DID GOOD THROUGHOUT THE NIGHT. DID NOT ASK FOR PAIN MEDS AND AMBULATED WELL TO BATHROOM INDEPENDENTLY. TO REPORT TO DAY SHIFT
[2021-05-16 08:34] VITALS: BP 125/50; PULSE 63; TEMP 98.2
--- NOTE | 2021-05-16 09:33 | NUR ---
Patient reported that she slept well last night. She reported some mild aching to her right knee, but rated it as a zero. She uses ice to manage swelling. Ang, with Ortho stopped by this morning to observe her right knee. No new orders just observing some mild swelling to the are that is normal at this stage per patient. Dressing is Clean Dry and Intact. No drainage observed. Bandage was changed yesterday per patient. Patient tolerated breakfast well this morning. She uses her walker for ambulation. She is a one assist with ambulation. She is currently working with PT at this time. Will continue to monitor.
[2021-05-16 11:09] VITALS: BP 125/46; PULSE 63; TEMP 98.1
[2021-05-16] MEDS ORDERED: ASPI325T6 PO (14:05)
[2021-05-16] MEDS ORDERED: NORCO 325 MG-51 TAB PO (14:06)
[2021-05-16] MEDS ORDERED: ULTRAM 50MG TAB50 MG PO (14:06)
[2021-05-16] MEDS ORDERED: SENOKOT S 50 MG1 TAB PO (14:07)
--- NOTE | 2021-05-16 14:27 | NUR ---
Patient's discharge papers were printed and sent to [facility] for patient's admission to Room #335. Staff assisted patient with collecting belongings and transferring them from surgical room to IPR room.
== END 2021-05-16 14:31 | DRG 470 ==
LOC: INPTSU 05-14 06:24 → SURG 05-14 06:24
PROVIDERS: ADMIT Orthopaedic Surgery
PROC: 0SRC0J9 Replacement of Right Knee Joint with Synthetic Substitute, Cemented, Open Approach (ICD-10-PCS; principal; 2021-05-14 10:30)
DX: M17.11 Unilateral primary osteoarthritis, right knee (principal); E66.9 Obesity, unspecified; I10 Essential (primary) hypertension; G89.29 Other chronic pain; Z96.643 Presence of artificial hip joint, bilateral; M54.9 Dorsalgia, unspecified; Z86.718 Personal history of other venous thrombosis and embolism; Z90.89 Acquired absence of other organs; Z90.49 Acquired absence of other specified parts of digestive tract; Z90.710 Acquired absence of both cervix and uterus; Z79.82 Long term (current) use of aspirin
CPT/HCPCS: A9284; C1713; C1776; J0690; J2704; J7030; J7120

== ENCOUNTER 2021-05-16 09:39 | Inpatient (IN) | payer MEDICARE, BC, MEDICAID ==
[~2021-05-16] VITALS: Ht 160 cm; Wt 103.1 kg
[~2021-05-16 09:39] MED LIST changes: +EPA FISH OIL1 SGL PO; +LEXAPRO 10MG10 MG PO; +LOTRISONE 0.05%1 CRE TOP; +NORVASC 5MG5 MG/TAB PO; +[UNRECOGNIZED DRUG - OTHER] PO
[2021-05-16] MEDS ORDERED: ASPI325T6 PO (14:05)
[2021-05-16] MEDS ORDERED: ULTRAM 50MG TAB50 MG PO (14:06)
[2021-05-16] MEDS ORDERED: NORCO 325 MG-51 TAB PO (14:06)
[2021-05-16] MEDS ORDERED: SENOKOT S 50 MG1 TAB PO (14:07)
[2021-05-16 16:13] VITALS: BP 141/42; PULSE 66; TEMP 97.7
[2021-05-16 18:08] VITALS: BP 141/42; PULSE 66; TEMP 97.7
--- NOTE | 2021-05-16 18:51 | NUR ---
RECEIVED CHANGE OF SHIFT FROM DAY SHIFT NURSE. BED ALARM ON WITH CALL LIGHT WITHIN PATIENT REACH.
--- NOTE | 2021-05-16 19:01 | NUR ---
Patient arrived to [facility] Room 335 this afternoon. Admission papers were signed, BIMS completed and admission assessment completed. Patient had an incontinent episode of urine times two this evening in underwear and night gown. Patient was changed to disposable briefs to assist her with the stress incontinence. Patient was tearful due to embarassment of the incontinence. Patient used her call light and waited for staff to arrive, but stated that when she is at home she can go to the bathroom very quick and then has less issues with incontience. Patient educated on the need to continue to use the call light and wait for assistance. She voiced understanding. Patient ate most of her supper this evening. She has family visiting at this time. She denies any questions. She is lying in bed, call light in reach and bed alarm set. Reported off to night nurse.
--- NOTE | 2021-05-17 02:59 | NUR ---
C/O ITCHING TO OUTER DORSAL SIDE OF RIGHT FOOT, REQUESTED LOTRIMIN OINT APPLIED TO AREA OF COMPLAINT. DENIES ANY OTHER NEEDS. NICOLE DANYELLE THIGH HIGH HOSE REMOVED AT THIS TIME.
[2021-05-17 04:03] VITALS: BP 129/48; PULSE 64; TEMP 98
--- NOTE | 2021-05-17 07:06 | NUR ---
CHANGE OF SHIFT REPORT GIVEN TO DAY SHIFT NURSE, JERMAINE CUMMINGS.
--- NOTE | 2021-05-17 07:18 | NUR ---
Pt assessment complete. Pt up to the restroom this am, with SBA and use of a walker. Denies pain to knee, reports some low back pain but requests pain patch be placed after shower. Up in recliner for breakfast, call light within reach.
--- NOTE | 2021-05-17 14:12 | NUR ---
Welcomed pt to the Rehab unit. Explained the rehab process & goals. Completed SW assessment w/ pt. She is alert & oriented & able to communicate her needs & wants to others. She lives at home alone in a 2 story home w/ cellar, she does not use the 2nd floor or cellar. There are 2 steps to enter w/ bilateral handrails. The bathroom has a step-in shower w/ curtain, grab bars, built-in seat, & hand held shower head. The toilet is ADA height. Pt reports walking w/ a r/walker & was independent w/ her self care. She also reports doing the cooking, cleaning, laundry, shopping, drove, medication management, & finance management. She has her own r/walker. [facility] & reports she has no concerns or issues w/ affording her medications. PCP: Dr. Landis DPOA: reports having one & Abbey, daughter, is designated Pt had no questions/concerns at this time about her rehab stay. SW will continue to follow to provide support & assist w/ d/c planning.
[2021-05-17 15:56] VITALS: BP 136/58; PULSE 63; TEMP 97.8
--- NOTE | 2021-05-17 21:00 | NUR ---
PT A&OX4. PLEASANT AND COOPERATIVE. ASSISTED TO BR WITH WALKER. TOLERATED WELL. HAS STRESS INCONTINENCE. WEARS BRIEFS AND PADS. RT KNEE SWOLLEN AND SL RED/ AQUACEL CDI. ICE PACK AND ELEVATED. DENIES PAIN AT THIS TIME. CALL LIGHT IN REACH. BED ALARM SET.
--- NOTE | 2021-05-17 21:40 | NUR ---
PT C/O HEARTBURN. NOTIFIED MARIELA. NEW ORDERS NOTED FOR TUMS. SEE MAR.
[2021-05-18 04:30] VITALS: BP 144/54; PULSE 67; TEMP 97.9
--- NOTE | 2021-05-18 05:35 | NUR ---
PT HAS RESTED WELL THIS SHIFT. NO FURTHER C/O KNEE PAIN OR HEARTBURN THIS SHIFT SINCE TYLENOL AND TUMS GIVEN EARLIER IN SHIFT.
--- NOTE | 2021-05-18 06:55 | NUR ---
Report received from ZOILA Trivedi. Patient is sleeping in bed. Call light and bedside table are within reach. Will continue to monitor throughout shift.
--- NOTE | 2021-05-18 14:59 | NUR ---
All therapies are completed for the day. Patient participated in group therapy. Patient is resting in bed. Call light and bedside table are within reach.
[2021-05-18 18:15] VITALS: BP 123/43; PULSE 71; TEMP 97.8
--- NOTE | 2021-05-18 20:08 | NUR ---
PT SITTING IN RECLINER. SBA TO BR WITH WALKER. MANAGED CHANGE OF CLOTHING WITH SET UP ONLY. DANYELLE HOSE OFF AT THIS TIME. TO BED. SCD'S ON. CALL LIGHT IN REACH. ICE PACK TO RT KNEE AND ELEVATED.
[2021-05-19 05:07] VITALS: BP 130/40; PULSE 64; TEMP 97.8
--- NOTE | 2021-05-19 06:30 | NUR ---
Report received from ZOILA Peters. Patient is sleeping in bed. Call light and bedside table are within reach.
--- NOTE | 2021-05-19 06:40 | NUR ---
Report received by ZOILA Peters. Patient is sleeping. Call light and bedside table are within reach. Will continue to monitor patient throughout the night.
--- NOTE | 2021-05-19 06:45 | NUR ---
HAD RESTLESS NIGHT WITH RT KNEE PAIN. SLEEPING PRESENTLY.
--- NOTE | 2021-05-19 12:15 | NUR ---
Patient's daughter is visiting and brought her mother lunch.
--- NOTE | 2021-05-19 13:16 | NUR ---
Patient's daughter left. Patient is sitting in recliner. Call light and bedside table are within reach.
[2021-05-19 17:10] VITALS: BP 114/42; PULSE 60; TEMP 97.4
--- NOTE | 2021-05-19 19:33 | NUR ---
SBA WITH WALKER TO BR. PT ABLE TO CHANGE OWN CLOTHING PER SELF. ASSISTED WITH TAKING DANYELLE HOSE OFF. SCD'S ON IN BED. ES TYLENOL GIVEN FOR LOW BACK PAIN. ICE PACK TO RT KNEE. CALL LIGHT IN REACH. BED ALAM SET.
[2021-05-20 04:35] VITALS: BP 135/43; PULSE 63; TEMP 98.2
--- NOTE | 2021-05-20 08:00 | NUR ---
Patient sitting up in bed eating breakfast. A&Ox4. VSS. Independent with feeds and most ADL's. Reports pain in right knee and request pain medication before therapy starts. No further needs expressed from the patient. Call light within reach
--- NOTE | 2021-05-20 10:33 | NUR ---
Visited w/ pt. Pt stated she had a good weekend. She did have a lot of questions &/or concerns about being ready to go home. Told her that SW will be talking to the team this afternoon about a tentative date & about being modifiedt independent in her room. We also discussed outpatient therapy vs home health therapy. She did comment that she would prefer outpatient therapy. Will continue to follow for support & d/c planning.
[2021-05-20 16:21] VITALS: BP 115/36; PULSE 65; TEMP 97.6
--- NOTE | 2021-05-20 17:54 | NUR ---
Patient had an uneventful day, worked with therapy and tolerated well. Pain medication given when requested. Patient independent in the room and nursing staff instructed patient to call if needing assistance. A&Ox3. VSS. Patient sitting up in the recliner watching TV. No further needs expressed. Call light within reach
--- NOTE | 2021-05-20 18:50 | NUR ---
RECEIVED CHANGE OF SHIFT REPORT FROM DAY SHIFT NURSE. PATIENT UP IN CHAIR. PATIENT UP AD AIDE IN ROOM WITH NO REPORTED PROBLEMS OR CONCERNS. NO EXIT ALARMS NEEDED. CALL LIGHT WITHIN REACH.
--- NOTE | 2021-05-20 23:30 | NUR ---
PATIENT UP IN ROOM AD AIDE WITH NO REPORTED PROBLEMS OR CONCERNS. UP WITH WALKER TO AND FROM BATHROOM AND ANY OUT OF BED ACTIVITIES. DENIES CHEST PAIN/SOA. DENIES NUMBNESS/TINGLING TO EXTREMITIES AT THIS TIME.
[2021-05-21 05:18] VITALS: BP 125/39; PULSE 57; TEMP 97.2
--- NOTE | 2021-05-21 08:38 | NUR ---
Patient resting in recliner, call light in reach and mod I in room with a walker. Patient denies pain at this time. She was given prn pain med for right knee pain this morning and it is effective. Denies questions at this time.
--- NOTE | 2021-05-21 13:13 | NUR ---
Admission QIM scores were reviewed by the team. Code of 4 chosen for oral hygiene was determined by team discussion to be the most usual performance before interventions for this patient during the assessment period. Code of 4 chosen for toilet hygiene was determined by team discussion to be the most usual performance for this patient during the assessment period. Code of 3 chosen for putting on/taking off footwear was determined by team discussion to be the most usual performance for this patient during the assessment period. Code of 3 chosen for rolling left to right was determined by team discussion to be the most usual performance before interventions for this patient during the assessment period. Code of 4 chosen for sit to lying was determined by team discussion to be the most usual performance for this patient during the assessment period. Code of 3 chosen for lying to sitting on side of bed was determined by team discussion to be the most usual performance for this patient during the assessment period. Code of 3 for sit to stand was determined by team discussion to be the most usual performance for this patient during the assessment period. Code of 3 for chair/bed to chair transfers was determined by team discussion to be the most usual performance for this patient during the assessment period.--Bryanna Malone,
--- NOTE | 2021-05-21 15:13 | NUR ---
Patient attended all therapies this shift. Currently resting in bed taking a nap. Will continue to monitor.
--- NOTE | 2021-05-21 16:27 | NUR ---
Call placed to Dr. Toscano reporting some bloody drainage to the right knee incision. The medial side of incision was warm to touch and had some pinkness to it. It had more edema and lavell hose were removed due to pain from swelling. Received orders from Dr. Toscano to apply the following to the right knee incision: 4x4's, ABD pads and secure with kerlix gauze and compression ngoc wrap. Patient currently has ice to incision and right leg is elevated. Dr. Toscano will be stopping by to observe the incision tomorrow morning. Will continue to monitor.
[2021-05-21 16:41] VITALS: BP 139/46; PULSE 68; TEMP 98.1
--- NOTE | 2021-05-21 18:46 | NUR ---
RECEIVED CHANGE OF SHIFT REPORT FROM DAY SHIFT NURSE. PATIENT UP IN ROOM AD AIDE, NO EXIT ALARMS NEEDED.
--- NOTE | 2021-05-22 00:23 | NUR ---
SEE MAR FOR PAIN MEDS GIVEN FOR C/O INNER TOP OF RIGHT FOOT OF STINGING PAIN, REPORTS R KNEE PAIN "IS NOT BAD BEFORE" WITH RLE ELEVATED ON 3 PILLOWS. ICE PACKS CONTINUE TO RIGHT KNEE. REWRAPPED ARY DRSG TO RIGHT FOOT FOR COMPLAINT OF STINGING TO INNER TOP OF R FOOT, OBSERVED SOME REDNESS TO ANT RIGHT ANKLE AREA/TOP OF RIGHT FOOT WITH MEDICATED CREAM APPLIED TO AREA PER PATIENT REQUEST. PATIENT UP TO CHAIR WITH PILLOWS TO KEEP RLE ELEVATED. DENIES NUMBNESS/TINGLING TO EXTREMITIES, DENIES CHEST PAIN/SOA AT THIS TIME.
--- NOTE | 2021-05-22 03:10 | NUR ---
PATIENT UP TO BATHROOM FROM CHAIR, REPORTS ABLE TO PUT FULL WEIGHT TO RLE, REPORTS PAIN "IS BETTER THAN BEFORE". WENT TO BED AFTER BATHROOM USE, REFUSED OFFER OF ICE PACK TO RIGHT KNEE. DENIES NUMBNESS/TINGLING TO EXTREMITIES. DENIES CHEST PAIN/SOA. RLE ELEVATED ON 3 PILLOWS.
[2021-05-22 06:05] VITALS: BP 103/41; PULSE 56; TEMP 97.8
--- NOTE | 2021-05-22 07:26 | NUR ---
CHANGE OF SHIFT REPORT GIVEN TO DAY SHIFT NURSE, HEATHER CUMMINGS.
--- NOTE | 2021-05-22 07:36 | NUR ---
Patient reports pain to right knee when sitting 2/10. Given prn [place]. Less warmth to right knee per patient. Will continue to monitor.
--- NOTE | 2021-05-22 09:18 | NUR ---
Contacted [facility]. Spoke w/ Brittnee & inquired about an appointment. She confirmed there is an appointment for 05/27/21 @ 12:40 pm. Thanked her for the information.
--- NOTE | 2021-05-22 13:50 | NUR ---
Reviewed team conference note w/ pt. She stated she agreed w/ current level of function. Informed her that the d/c is still set for tomorrow, , 05/23/21, w/ recommendation for outpatient PT. She inquired if it was okay to leave around 5:00 pm when her daughter gets off work. Told her that would be fine. Informed her that SW had contacted [facility] outpatient PT & confirmed her apointment is on 05/27/21 @ 12:40 pm. She talked about her knee pain & feels it something that happens & not anything wrong. Told her that ortho is to come see her sometime today to check the knee, which she is good w/. She did not have any questions/concerns at this time.
--- NOTE | 2021-05-22 15:31 | NUR ---
Patient has attended all therapies this shift. She has been tolerating pain with [place] and Tylenol and currently 2/10 pain at this time. She was seen by Dr. Toscano and he observed right knee incision reporting that there were no signs of infection. The warmth is expected as well as some swelling. Dr. Toscano was okay with patient having a knee high compression stocking on the right lower leg instead of the thigh high. Thigh high was too tight and causing pain for patient by digging into her thigh. Patient currently resting in bed, call light in reach and independent in her room. The plan is for her to discharge tomorrow.
[2021-05-22 17:53] VITALS: BP 125/50; PULSE 66; TEMP 97.9
--- NOTE | 2021-05-22 18:50 | NUR ---
RECEIVED CHANGE OF SHIFT REPORT FROM DAY SHIFT NURSE. PATIENT UP IN CHAIR, UP AD AIDE WITH NO REPORTED PROBLEMS OR CONCERNS AT THIS TIME.
[2021-05-23 03:40] VITALS: BP 129/54; PULSE 54; TEMP 98.2
--- NOTE | 2021-05-23 06:30 | NUR ---
Report received from ZOILA Mcallister. Patient is sleeping in bed. Call light and bedside table are within reach. Will continue to monitor patient throughout shift.
--- NOTE | 2021-05-23 07:09 | NUR ---
CHANGE OF SHIFT REPORT GIVEN TO DAY SHIFT NURSE, GUERLINE CUMMINGS.
[2021-05-23] MEDS ORDERED: NORCO 325 MG-51 TAB PO (07:52)
[2021-05-23] MEDS ORDERED: ULTRAM 50MG TAB50 MG PO (07:52)
[2021-05-23] MEDS ORDERED: ASPI325T6 PO (08:00)
--- NOTE | 2021-05-23 09:15 | NUR ---
Visited w/ pt about her d/c today. She feels she is ready & did not have any questions or concerns about her d/c. Reminded her of her outpatient PT appointment on 05/27/21, which will be on her d/c paperwork.
--- NOTE | 2021-05-23 12:14 | NUR ---
Patient's daughter is visiting with her.
--- NOTE | 2021-05-23 12:54 | NUR ---
Patient's daughter has left and will be back to pick patient up for discharge at 1700.
--- NOTE | 2021-05-23 17:25 | NUR ---
Patient health summary, discharge summary, and home meds printed and reviewed with patient. Stressed importance of follow up appointments. Reviewed medications. Belongings gathered by daughter and JONATHAN Bateman. Patient tranported via wheelchair by JONATHAN Bateman and seatbelted fpr ride home. Patient denied questions.
== END 2021-05-23 17:25 | disposition home or self-care (01) | DRG 561 ==
PROVIDERS: ADMIT Internal Medicine
DX: Z47.1 Aftercare following joint replacement surgery (principal); Z96.651 Presence of right artificial knee joint; Z73.6 Limitation of activities due to disability; R26.89 Other abnormalities of gait and mobility; I10 Essential (primary) hypertension; Z86.718 Personal history of other venous thrombosis and embolism; E66.9 Obesity, unspecified; G89.29 Other chronic pain; M54.9 Dorsalgia, unspecified; Z88.2 Allergy status to sulfonamides; Z88.0 Allergy status to penicillin; Z88.8 Allergy status to other drugs, medicaments and biological substances; Z79.899 Other long term (current) drug therapy; Z79.891 Long term (current) use of opiate analgesic; Z79.82 Long term (current) use of aspirin; Z68.39 Body mass index [BMI] 39.0-39.9, adult
CPT/HCPCS: 99222-AI; 99231-AI; 99232-AI; 99238

== ENCOUNTER 2022-03-29 14:50 | Emergency (ER) | payer MEDICARE, BC, MEDICAID ==
[~2022-03-29] VITALS: Ht 160 cm; Wt 100.0 kg
[~2022-03-29 14:50] MED LIST changes: +ASPI325T6 PO; +SENOKOT S 50 MG1 TAB PO
[2022-03-29 15:03] VITALS: TEMP 97.3
[2022-03-29 16:22] LABS: BASO # 0.1 K/mm3 (0.0-0.2); BASO % 0.5 % (0.0-2.0); EOS # 0.4 K/mm3 (0.0-0.7); EOS % 4.2 % (0.0-4.0); GRAN # 6.4 K/mm3 (1.4-6.5); HEMATOCRIT 37.9 % (37.0-47.0); HEMOGLOBIN 12.8 g/dl (12.5-16.0); LYMPH # 2.2 K/mm3 (1.2-3.4); LYMPH % 21.3 % (20.0-51.0); MEAN CELL VOLUME 95 fl (80.0-100.0); MEAN CORPUSCULAR HEMOGLOBIN 32 pg (27-31); MEAN CORPUSCULAR HGB CONC 34 g/dl (33.0-37.0); MEAN PLATELET VOLUME 9.8 fl (7.4-10.4); MONO % 10.3 % (1.7-9.3); PLATELET COUNT 213 K/mm3 (130-400); RED BLOOD COUNT 3.98 M/mm3 (4.10-5.30); REDCELL DISTRIBUTION WIDTH-CV 12.5 % (11.5-14.5)
[2022-03-29 16:38] LABS: ALBUMIN 4.1 gm/dL (3.4-4.8); BILIRUBIN,TOTAL 0.3 mg/dL (0.2-1.2); C-REACTIVE PROTEIN 0.36 mg/dL (0.00-0.50); CALCIUM 9.5 mg/dL (8.4-10.2); CREATININE, serum 1.01 mg/dL (0.57-1.11); POTASSIUM 5.1 mmol/L (3.5-4.5); TOTAL PROTEIN 7.8 gm/dL (6.2-8.1)
[2022-03-29 16:59] LABS: TROPONIN-I 0.015 ng/mL (0.00-0.033)
[2022-03-29 20:12] VITALS: BP 131/63; PULSE 64
== END 2022-03-29 20:12 | disposition home or self-care (01) ==
LOC: COL.ER 14:50
PROVIDERS: Nurse Practitioner
DX: R07.89 Other chest pain (principal); I10 Essential (primary) hypertension; Z79.899 Other long term (current) drug therapy
CPT/HCPCS: J7030; Q9967